=== PATIENT | female | born 1995 | race Caucasian/White ===

== ENCOUNTER 2020-11-04 14:49 | Emergency (ER) | payer OTHER ==
[~2020-11-04] VITALS: Ht 160 cm; Wt 66.7 kg
[2020-11-04] MEDS ORDERED: PRENATABS FA T1 EACH (15:14)
[2020-11-04] MEDS ORDERED: FOLIC ACID0.8 M1 (15:14)
== END 2020-11-04 18:59 | disposition home or self-care (01) ==
LOC: ER 14:49
DX: O26.892 Other specified pregnancy related conditions, second trimester (principal); N61.1 Abscess of the breast and nipple; Z34.02 Encounter for supervision of normal first pregnancy, second trimester

== ENCOUNTER 2021-01-23 14:45 | Inpatient (IN) | payer OTHER ==
[~2021-01-23] VITALS: Ht 160 cm; Wt 73.5 kg
[~2021-01-23 14:45] MED LIST: FOLIC ACID0.8 M1; PRENATABS FA T1 EACH
== END 2021-01-29 14:36 | disposition home or self-care (01) | DRG 807 ==
LOC: OB/GYN 14:45 → LDR 01-27 07:13 → SURG-SUITE 01-27 07:13 → OB/GYN 02-03 14:45
PROVIDERS: ADMIT Obstetrics & Gynecology; ATTEND Obstetrics & Gynecology
PROC: 10E0XZZ Delivery of Products of Conception, External Approach (ICD-10-PCS; principal; 2021-01-27)
PROC: 0HQ9XZZ Repair Perineum Skin, External Approach (ICD-10-PCS; 2021-01-27)
PROC: 10907ZC Drainage of Amniotic Fluid, Therapeutic from Products of Conception, Via Natural or Artificial Opening (ICD-10-PCS; 2021-01-27)
PROC: 4A1HXFZ Monitoring of Products of Conception, Cardiac Rhythm, External Approach (ICD-10-PCS; 2021-01-27)
DX: O70.0 First degree perineal laceration during delivery (principal); Z37.0 Single live birth; Z3A.39 39 weeks gestation of pregnancy